=== PATIENT | male | born 1995 | race Hispanic/Latino ===

== ENCOUNTER 2018-12-04 20:35 | Emergency (ER) | payer BC ==
--- NOTE | 2018-12-04 21:22 | Emergency Department Report ---
ED General Adult HPI - General Chief complaint: Abdominal Pain Stated complaint: ABDOMINAL PAIN/FEVER Time Seen by Provider: 12/04/18 21:21 Source: patient Mode of arrival: Ambulatory Limitations: No Limitations - History of Present Illness Initial comments: Patient is a 23-year-old male who presents with abdominal paingoing on for last few hours. He says that the abdominal pain as a 3 out of 10. Nothing makes it better and nothing makes it worse he has not taken any [id number] medications for his pain. He is not nauseous and is not having any vomiting. He denies having any sick contacts. The pain is located to the epigastrium. - Related Data Previous Rx's Medication Instructions Recorded Last Taken Type D-Methorphan/PE/Acetaminophen 1 each PO Q6H #30 tablet 12/04/18 Unknown Rx [Tylenol Cold Max Day Caplet] Allergies Allergy/AdvReac Type Severity Reaction Status Date / Time No Known Allergies Allergy Unverified 12/04/18 20:40 ED Review of Systems ROS: Stated complaint: ABDOMINAL PAIN/FEVER Other details as noted in HPI Constitutional: fever. denies: chills Eyes: denies: eye pain, eye discharge, vision change ENT: denies: ear pain, throat pain Respiratory: denies: cough, shortness of breath, wheezing Cardiovascular: denies: chest pain, palpitations Endocrine: no symptoms reported Gastrointestinal: abdominal pain. denies: nausea, diarrhea Genitourinary: denies: urgency, dysuria Musculoskeletal: denies: back pain, joint swelling, arthralgia Skin: denies: rash, lesions Neurological: denies: headache, weakness, paresthesias Psychiatric: denies: anxiety, depression Hematological/Lymphatic: denies: easy bleeding, easy bruising ED Past Medical Hx - Medications Home Medications: Home Medications Medication Instructions Recorded Confirmed Last Taken Type D-Methorphan/PE/Acetaminophen 1 each PO Q6H #30 tablet 12/04/18 Unknown Rx [Tylenol Cold Max Day Caplet] ED Physical Exam - General Limitations: No Limitations General appearance: alert, in no apparent distress - Head Head exam: Present: atraumatic, normocephalic - Eye Eye exam: Present: normal appearance - ENT ENT exam: Present: mucous membranes moist - Neck Neck exam: Present: normal inspection - Respiratory Respiratory exam: Present: normal lung sounds bilaterally. Absent: respiratory distress - Cardiovascular Cardiovascular Exam: Present: regular rate, normal rhythm. Absent: systolic murmur, diastolic murmur, rubs, gallop - GI/Abdominal GI/Abdominal exam: Present: soft, normal bowel sounds - Rectal Rectal exam: Present: deferred - Extremities Exam Extremities exam: Present: normal inspection - Back Exam Back exam: Present: normal inspection - Neurological Exam Neurological exam: Present: alert, oriented X3 - Psychiatric Psychiatric exam: Present: normal affect, normal mood - Skin Skin exam: Present: warm, dry, intact, normal color. Absent: rash ED Course Vital Signs 12/04/18 12/04/18 12/04/18 20:24 20:30 20:46 Temperature 99.3 F Pulse Rate 106 H Respiratory 18 Rate Blood Pressure 110/67 O2 Sat by Pulse 98 96 96 Oximetry 12/04/18 12/04/18 12/04/18 21:17 21:19 21:24 Temperature 100.8 F H Pulse Rate 93 H Respiratory 16 18 Rate Blood Pressure 108/54 O2 Sat by Pulse 93 96 96 Oximetry 12/04/18 12/04/18 12/04/18 21:30 21:45 22:01 Temperature Pulse Rate Respiratory Rate Blood Pressure 109/55 109/55 137/67 O2 Sat by Pulse 96 96 97 Oximetry 12/04/18 12/04/18 12/04/18 22:15 22:30 22:45 Temperature Pulse Rate Respiratory Rate Blood Pressure 109/55 119/59 113/52 O2 Sat by Pulse 97 97 95 Oximetry 12/04/18 22:48 Temperature 98.9 F Pulse Rate Respiratory Rate Blood Pressure O2 Sat by Pulse Oximetry ED Medical Decision Making - Lab Data Result diagrams: 12/04/18 21:41 12/04/18 21:41 Lab Results 12/04/18 12/04/18 12/04/18 Range/Units 21:41 21:41 21:41 WBC 6.1 (4.5-11.0) K/mm3 RBC 4.70 (3.65-5.03) M/mm3 Hgb 14.0 (11.8-15.2) gm/dl Hct 40.3 (35.5-45.6) % MCV 86 (84-94) fl MCH 30 (28-32) pg MCHC 35 H (32-34) % RDW 12.9 L (13.2-15.2) % Plt Count 147 (140-440) K/mm3 Lymph % (Auto) 20.0 (13.4-35.0) % Nelson % (Auto) 13.5 H (0.0-7.3) % Eos % (Auto) 0.6 (0.0-4.3) % Baso % (Auto) 0.4 (0.0-1.8) % Lymph # 1.2 (1.2-5.4) K/mm3 Nelson # 0.8 (0.0-0.8) K/mm3 Eos # 0.0 (0.0-0.4) K/mm3 Baso # 0.0 (0.0-0.1) K/mm3 Seg Neutrophils % 65.5 (40.0-70.0) % Seg Neutrophils # 4.0 (1.8-7.7) K/mm3 Sodium 135 L (137-145) mmol/L Potassium 3.9 (3.6-5.0) mmol/L Chloride 100.2 (98-107) mmol/L Carbon Dioxide 24 (22-30) mmol/L Anion Gap 15 mmol/L BUN 14 (9-20) mg/dL Creatinine 1.1 (0.8-1.5) mg/dL Estimated GFR > 60 ml/min BUN/Creatinine Ratio 13 % Glucose 103 H (75-100) mg/dL Calcium 8.8 (8.4-10.2) mg/dL Influenza A (Rapid) Negative (Negative) Influenza B (Rapid) Negative (Negative) - Radiology Data Radiology results: report reviewed, image reviewed CXR: Shows no acute cardiopulmonary disease - Medical Decision Making Cdx: Gastritis ddx: Influenza, viral uri I will get blood work and will give patient oral pain medication and viscous lidocaine Patient is feeling better and his labratory work-up is unremarkable I will send patient home. Critical care attestation.: If time is entered above; I have spent that time in minutes in the direct care of this critically ill patient, excluding procedure time. ED Disposition Clinical Impression: Abdominal pain in male, Viral syndrome Disposition: DC-01 TO HOME OR SELFCARE Is pt being admited?: No Does the pt Need Aspirin: No Condition: Stable Instructions: Viral Syndrome (ED) Prescriptions: D-Methorphan/PE/Acetaminophen [Tylenol Cold Max Day Caplet] 1 each PO Q6H #30 tablet
[2018-12-04] MEDS ORDERED: IBUPROFEN PO ONE (21:27)
[2018-12-04] MEDS ORDERED: LIDOCAINE VISCOUS 2% PO ONE (21:27)
[2018-12-04] MEDS ORDERED: TYLENOL PO ONE (21:27)
[2018-12-04 21:52] LABS: Basophils % (Auto) 0.4 % (0.0-1.8); Eosinophils % (Auto) 0.6 % (0.0-4.3); Hematocrit 40.3 % (35.5-45.6); Lymphocytes # (Auto) 1.2 K/mm3 (1.2-5.4); Mean Corpuscular HGB Conc 35 % (32-34); Mean Corpuscular Volume 86 fl (84-94); Monocytes # (Auto) 0.8 K/mm3 (0.0-0.8); Monocytes % (Auto) 13.5 % (0.0-7.3); Platelet Count 147 K/mm3 (140-440); Red Cell Distribution Width 12.9 % (13.2-15.2)
[2018-12-04 22:02] LABS: BUN/Creatinine Ratio 13; Blood Urea Nitrogen 14 mg/dL (9-20); Calcium 8.8 mg/dL (8.4-10.2); Hemolysis Index 8
[2018-12-04 22:49] VITALS: BP 113/52
--- NOTE | 2018-12-04 23:21 | XRay Report ---
PROCEDURE: XR CHEST ROUTINE 2V TECHNIQUE: PA and lateral chest radiographs were obtained. HISTORY: abd pain COMPARISONS: None. FINDINGS: Heart: Normal. Mediastinum/Vessels: Normal. Lungs/Pleural space: Normal. Bony thorax: No acute osseous abnormality. IMPRESSION: No acute cardiopulmonary process seen.. This document is electronically signed by Shirley Genao MD., December 04 2018 09:45:48 PM ET
== END 2018-12-05 00:15 | disposition home or self-care (01) ==
LOC: ED 20:35
DX: R10.13 Epigastric pain (principal); B34.9 Viral infection, unspecified
CPT/HCPCS: 36415; 71046; 80048; 85025; 87400